=== PATIENT | female | born 1980 | race Caucasian/White ===

== ENCOUNTER 2016-08-13 10:24 | Emergency (ER) | payer OTHER ==
[2016-08-13 10:47] VITALS: BP 109/64; PULSE 65; RESP 18; TEMP 98.1; O2SAT 97
--- NOTE | 2016-08-13 12:16 | UCPHY ---
H & P Time Seen by Provider: 08/13/16 12:12 Patient Type: Established Smoking Status: Never smoked Constitutional: Initial Vital Signs Temperature (C) 36.7 C 08/13/16 10:43 Heart Rate 65 08/13/16 10:43 Respiratory Rate 18 08/13/16 10:43 Blood Pressure 109/64 08/13/16 10:43 O2 Sat (%) 97 08/13/16 10:43 O2 Delivery Mode Room Air Allergies/Adverse Reactions: Penicillins Allergy (Verified 08/13/16 10:43) Home Medications: Medication Instructions Recorded NK [No Known Home Meds] 10/10/15 Medical Decision Making Differential Diagnosis: This patient left before being evaluated. Departure - Departure Disposition: Left Without Being Seen Referrals: Ansley Cook [Primary Care Provider] - As per Instructions - PQRS PQRS Measurement: Nondiagnostic
== END 2016-08-13 12:20 | disposition left against medical advice (07) ==
LOC: CED 10:24
DX: R05 Cough (principal); R07.81 Pleurodynia; Z53.9 Procedure and treatment not carried out, unspecified reason

== ENCOUNTER 2016-09-20 15:41 | Emergency (ER) | payer OTHER ==
[2016-09-20 16:15] LABS: LEUKOCYTE ESTERASE,URINE NEGATIVE (NEGATIVE); NITRITE,URINE NEGATIVE (NEGATIVE)
[2016-09-20 16:16] LABS: COLOR PALE YELLOW
[2016-09-20 16:50] LABS: % IMMATURE GRANULYOCYTES 0.1 % (0.0-1.1); ABSOLUTE IMMATURE GRANULOCYTES 0.01 10^3/uL (0.00-0.10); ADD DIFF? NO; ADD MORPH? NO; ADD SCAN? NO; ATYPICAL LYMPHOCYTE FLAG 30 (0-99); FRAGMENT RBC FLAG 0 (0-99); HEMATOCRIT 38.1 % (38.0-47.0); LEFT SHIFT FLG 0 (0-99); LIPEMIA HEMOLYSIS FLAG 90 (0-99); MEAN CELL HEMOGLOBIN 31.5 pg (27.9-34.1); MEAN CELL HEMOGLOBIN CONCENTR. 34.1 g/dL (32.4-36.7); MEAN CELL VOLUME 92.3 fL (81.5-99.8); MEAN PLATELET VOLUME 10.8 fL (8.7-11.7); PLATELET CLUMPS FLAG 10 (0-99); PLATELET COUNT 213 10^3/uL (150-400); RED BLOOD CELL COUNT 4.13 10^6/uL (4.18-5.33); RED CELL DISTRIBUTION WIDTH 12.2 % (11.5-15.2)
[2016-09-20 16:58] LABS: SEDIMENTATION RATE 5 MM/HR (0-20)
[2016-09-20 16:59] LABS: ALANINE AMINOTRANSFERASE 24 IU/L (9-52); ALBUMIN 4.1 g/dL (3.5-5.0); ALKALINE PHOSPHATASE 74 IU/L (38-126); ANION GAP 15 mEq/L (8-16); ASPARTATE AMINOTRANSFERASE 17 IU/L (14-46); BILIRUBIN,TOTAL 0.6 mg/dL (0.1-1.4); CARBON DIOXIDE 24 mEq/l (22-31); CHLORIDE 102 mEq/L (97-110); CREATININE 0.7 mg/dL (0.6-1.0); GLOMERULAR FILTRATION RATE > 60; GLUCOSE 104 mg/dL (70-100); MAGNESIUM 1.9 mg/dL (1.6-2.3); POTASSIUM 3.8 mEq/L (3.5-5.2); SODIUM 141 mEq/L (134-144); TOTAL PROTEIN 7.4 g/dL (6.3-8.2)
--- NOTE | 2016-09-20 17:20 | UCPHY ---
H & P Time Seen by Provider: 09/20/16 16:02 Patient Type: Established HPI/ROS: 36-year-old female presents complaining of left arm numbness that began this afternoon lasting approximately 1 hour she felt like her grasp was weaker than normal. Patient states she had her arm extended with a heavy bag and it for a prolonged period of time while collecting dog poop this morning, she states her symptoms began about 1 hour after that. Upon arrival to the urgent care her symptoms have markedly diminished and by the time I examined her her symptoms were resolved. Review of systems As per HPI General no fever no chills no weakness HEENT no eye pain no eye discharge. No eye redness, no sore throat Respiratory no cough, no shortness of breath Cardiac no chest pain, no peripheral edema GI no abdominal pain, no diarrhea, no constipation, no nausea, no vomiting no flank pain, no hematuria, no dysuria Musculoskeletal no myalgias, no joint pain Heme no easy bruising, no easy bleeding Endo no polyuria, no polydipsia Skin no rashes, no pruritus Neuro no syncope, no dizziness, no headaches, positive paresthesias left arm Psych is no suicidal ideation, no homicidal ideation Past Medical/Surgical History: None Social History: Has a [id number] infant Works at home Denies excessive alcohol or drug use Smoking Status: Never smoked Physical Exam: 36-year-old female alert and oriented no acute distress nontoxic appearance HEENT atraumatic normocephalic, extraocular muscles intact, anicteric Oropharynx negative for erythema negative exudate, tolerating her own secretions Neck supple no meningismus Lungs clear to auscultation bilaterally Heart regular rate and rhythm without murmur rub or gallop Abdomen nondistended normoactive bowel sounds soft nontender Back no CVA tenderness, no step-offs, no spinal tenderness Extremities no cyanosis clubbing or edema Neuro alert and oriented, no focal deficits No sensory deficit no weakness negative pronator drift negative Romberg Constitutional: Initial Vital Signs Temperature (C) 98 C H 09/20/16 15:54 Heart Rate 74 09/20/16 15:54 Respiratory Rate 18 09/20/16 15:54 Blood Pressure 124/62 H 09/20/16 15:54 O2 Sat (%) 97 09/20/16 15:54 O2 Delivery Mode Room Air Allergies/Adverse Reactions: Penicillins Allergy (Verified 08/13/16 10:43) Home Medications: Medication Instructions Recorded NK [No Known Home Meds] 10/10/15 Medical Decision Making ED Course/Re-evaluation: Patient seen and evaluated for transient paresthesias and weakness in her left arm. Physical exam normal no evidence of weakness no evidence of sensory deficit Laboratories CBC, CMP, magnesium all within normal limits Impression Transient paresthesia left upper arm possible ulnar neuropathy Plan Follow-up primary care physician - Data Points Laboratory Results: Laboratory Results 09/20/16 16:20 09/20/16 16:20 Departure - Departure Disposition: Home, Routine, Self-Care Clinical Impression: Paresthesia of arm Condition: Good Instructions: Cubital Tunnel Syndrome (ED), Paresthesia (ED) Referrals: Ansley Cook [Primary Care Provider] - As per Instructions - PQRS PQRS Measurement: na
[2016-09-20 17:52] VITALS: BP 112/72; PULSE 55; RESP 16; TEMP 97.9; O2SAT 100
== END 2016-09-20 17:50 | disposition home or self-care (01) ==
LOC: CED 15:41
DX: R20.0 Anesthesia of skin (principal)
CPT/HCPCS: 80053-PO; 81003-PO; 83735-PO; 84443-PO; 85025-PO; 85652-PO; G0463-PO